=== PATIENT | male | born 1980 | race Asian ===

== ENCOUNTER 2020-03-16 20:11 | Emergency (ER) | payer OTHER, SELFPAY ==
[2020-03-16 20:15] VITALS: BP 132/76; PULSE 87; RESP 13; TEMP 36.6; O2SAT 97; BMI 269.8
--- NOTE | 2020-03-16 20:24 | ED.WOUNDLAC ---
HPI - Wound/Laceration <Kellen Sheridan PA-C - Last Filed: 03/16/20 23:40> General Chief Complaint: Wound/Laceration Stated Complaint: LACERATION OF THE CHIN Time Seen by Provider: 03/16/20 20:23 Source: patient Mode of arrival: Ambulatory Limitations: no limitations History of Present Illness HPI narrative: Is a previously healthy 39-year-old gentleman who presents to the emergency department with a laceration to his chin with the bleeding controlled while holding direct pressure. He says that he has been camping with his family and he stepped off of a boat onto a dock which was about the same height as the boat and he tripped and fell forward catching himself with his legs in his thighs and then landing on his chin on the dock. This happened just prior to presenting to the emergency department. He notes that the cut is still bleeding some if he does not hold direct pressure on it. He notes that he has a ?swollen lip?, and that he has a bruise on the right side of his right thigh and the outside of his left thigh that he sustained when he fell onto the dock and caught himself on the side rail of the dock with his legs. He denies any other symptoms. He denies any prodrome of dizziness, lightheadedness, palpitations,, also denies loss of consciousness, headache, vision changes, changes to his bite, tooth injury, oral pain, any other injury except as described above. This is an isolated complaint. Onset (ago): minute(s) (30) Location: face (chin) Place: outdoors (on a dock) Patient tetanus UTD: No Context: accidental and fall Associated symptoms: pain Treatments prior to arrival: other (direct pressure) Related Data Allergies Allergy/AdvReac Type Severity Reaction Status Date / Time No Known Drug Allergies Allergy Verified 03/16/20 20:18 Review of Systems <Kellen Sheridan PA-C - Last Filed: 03/16/20 23:40> Review of Systems Narrative: GENERAL: Denies chills, fatigue, malaise, fever, sweats. HEENT: Denies sinus pain, ear pain, sore throat, difficulty swallowing, dizziness. RESPIRATORY: Denies dyspnea, cough, wheezing, hemoptysis, sputum. CARDIOVASCULAR: Denies chest pain, palpitations, orthopnea, edema, GASTROINTESTINAL: Denies nausea, vomiting, abdominal pain, diarrhea, constipation, melena. MUSCULOSKELETAL: denies weakness, joint pain, or bony pain, denies neck pain SKIN: Positive for a laceration on the underside of front of his chin. Denies rash, skin lesions, or other NEUROLOGIC: Denies weakness, headache, numbness, change in speech, confusion, seizures, incoordination. PSYCHIATRIC: No concerning psychosocial issues. 12 point review of systems is negative except for those stated above Patient History <Kellen Sheridan PA-C - Last Filed: 03/16/20 23:40> Social History Smoking Status: Unknown if ever smoked Smoking Status: Unknown if ever smoked alcohol intake frequency: holidays/special occasions only Substance Use Type: does not use Exam <Kellen Sheridan PA-C - Last Filed: 03/16/20 23:40> Narrative Exam Narrative: GENERAL: 39 year old patient appears stated age. Well-nourished, well-developed patient, in mild distress. HEAD: Atraumatic. Normocephalic. EYES: Pupils equal round and reactive. Extraocular motions intact. No scleral icterus. No injection or drainage. ENT: Nose without bleeding, purulent drainage. Oropharynx is clear, teeth are intact. Throat without erythema, tonsillar hypertrophy or exudate. Airway patent. There is mild swelling and abrasion of the left lateral lower lip. NECK: Trachea midline. Non tender. Spinous processes of the C-spine, T-spine and L-spine are nontender. C-spine range of motion is intact without pain. CARDIOVASCULAR: Regular rate and rhythm without murmurs, gallops, or rubs. RESPIRATORY: Clear to auscultation. Breath sounds equal bilaterally. No wheezes, rales, or rhonchi. GASTROINTESTINAL: Abdomen soft, non-tender, nondistended. EXTREMITIES: There is a 2 in x 3 in hematoma on the right lateral thigh midshaft, there is a hematoma and abrasion 3 in x 3 in on the left lateral thigh. Patient is fully ambulatory without leg pain. No edema or joint tenderness. BACK: Nontender without deformity or crepitance. No flank tenderness. NEURO: AOx3. Cranial nerves are intact. SKIN: There is a 3 cm full-thickness curvilinear laceration on the inferior chin. Bleeding is controlled with consistent direct pressure. No rash or erythema of visible areas Initial Vital Signs Initial Vital Signs: Vital Signs Temperature 97.8 F 03/16/20 20:15 Pulse Rate 87 03/16/20 20:15 Respiratory Rate 13 03/16/20 20:15 Blood Pressure 132/76 03/16/20 20:15 Pulse Oximetry 97 03/16/20 20:15 <Dex Ahumada DO - Last Filed: 03/17/20 00:04> Initial Vital Signs Initial Vital Signs: Vital Signs Temperature 97.8 F 03/16/20 20:15 Pulse Rate 87 03/16/20 20:15 Respiratory Rate 13 03/16/20 20:15 Blood Pressure 132/76 03/16/20 20:15 Pulse Oximetry 97 03/16/20 20:15 Procedures <DWAIN Ashraf Last Filed: 03/16/20 23:40> Laceration Repair Laceration 1: Site: face (Chin) Size (cm): 3 Description: linear (Curvilinear) and contaminated Depth: simple, single layer Local Anesthetic: lidocaine 1% and with bicarb Amount of anesthesia used (mL): 7 Pre-repair: wound explored, irrigated extensively and deep structures intact Skin layer closed with: nylon Size (cm): 5-0 Number of sutures: 6 Technique: simple, interrupted Scores <DWAIN Ashraf Last Filed: 03/16/20 23:40> GCS [place] coma scale eye opening: Spontaneous [place] coma scale verbal response: Orientated [place] coma scale motor response: Obey commands [place] coma scale total score: 15 Course <DWAIN Ashraf Last Filed: 03/16/20 23:40> Orders Ordered: Discontinued Medications Acetaminophen (Tylenol) 975 mg PO NOW ONE Stop: 03/16/20 20:37 Last Admin: 03/16/20 21:00 Dose: 975 mg Documented by: ESTHELA Bacitracin (Bacitracin) 3 applic TOP NOW ONE Stop: 03/16/20 22:02 Last Admin: 03/16/20 22:07 Dose: 3 applic Documented by: NADINE Diphtheria/Tetanus/Acell Pertussis (Adacel) 0.5 ml IM .ONCE ONE Stop: 03/16/20 21:00 Last Admin: 03/16/20 21:14 Dose: 0.5 ml Documented by: ESTHELA Ibuprofen (Advil) 800 mg PO NOW ONE Stop: 03/16/20 20:37 Last Admin: 03/16/20 21:00 Dose: Not Given Documented by: ESTHELA Lidocaine/Sodium Bicarbonate (Buffered Lidocaine 10 Ml Syr) 10 ml INJ NOW ONE Stop: 03/16/20 20:37 Last Admin: 03/16/20 21:01 Dose: 10 ml Documented by: ESTHELA Tetanus/Diphtheria Toxoids (Td) 0.5 ml IM .ONCE ONE Stop: 03/16/20 20:37 Last Admin: 03/16/20 21:15 Dose: Not Given Documented by: ESTHELA Vital Signs Vital signs: Vital Signs - 8 hr 03/16/20 20:15 03/16/20 22:17 Temperature 97.8 F Pulse Rate 87 85 Respiratory Rate 13 15 Blood Pressure 132/76 143/88 H Pulse Oximetry 97 96 <Dex Ahumada DO - Last Filed: 03/17/20 00:04> Orders Ordered: Discontinued Medications Acetaminophen (Tylenol) 975 mg PO NOW ONE Stop: 03/16/20 20:37 Last Admin: 03/16/20 21:00 Dose: 975 mg Documented by: ESTHELA Bacitracin (Bacitracin) 3 applic TOP NOW ONE Stop: 03/16/20 22:02 Last Admin: 03/16/20 22:07 Dose: 3 applic Documented by: NADINE Diphtheria/Tetanus/Acell Pertussis (Adacel) 0.5 ml IM .ONCE ONE Stop: 03/16/20 21:00 Last Admin: 03/16/20 21:14 Dose: 0.5 ml Documented by: ESTHELA Ibuprofen (Advil) 800 mg PO NOW ONE Stop: 03/16/20 20:37 Last Admin: 03/16/20 21:00 Dose: Not Given Documented by: ESTHELA Lidocaine/Sodium Bicarbonate (Buffered Lidocaine 10 Ml Syr) 10 ml INJ NOW ONE Stop: 03/16/20 20:37 Last Admin: 03/16/20 21:01 Dose: 10 ml Documented by: ESTHELA Tetanus/Diphtheria Toxoids (Td) 0.5 ml IM .ONCE ONE Stop: 03/16/20 20:37 Last Admin: 03/16/20 21:15 Dose: Not Given Documented by: ESTHELA Vital Signs Vital signs: Vital Signs - 8 hr 03/16/20 20:15 03/16/20 22:17 Temperature 97.8 F Pulse Rate 87 85 Respiratory Rate 13 15 Blood Pressure 132/76 143/88 H Pulse Oximetry 97 96 [facility] - Wound/Laceration <Kellen Sheridan PA-C - Last Filed: 03/16/20 23:40> Differential Diagnosis Differential diagnosis: Likely laceration, abrasion, avulsion of skin and other (Close head injury, neck pain, fracture) Medical Records Attestation: I reviewed the patient's medical records. [facility] Narrative Medical decision making narrative: This is a previously healthy 39-year-old gentleman who presents to the emergency department after sustaining a laceration to the underside of his chin when he was stepping from a boat onto a dock shortly before arrival in the emergency department. He caught himself initially with his anterior thighs, and then fell hitting his chin, had no loss of consciousness, no prodrome, no neck pain, full intact range of motion of the C-spine, normal bite, no broken teeth, and no imaging or labs were obtained. Differential diagnoses considered include, laceration, nerve injury, vascular injury, fracture tooth injury, close head injury, concussion. Based on history and exam, I believe this is an isolated injury laceration to the chin. Laceration was irrigated extensively and repaired as above without incident. Patient was provided with emergency return precautions, instructions for suture care, advised to follow-up with his primary care physician and all questions were answered. Discharge Plan Departure Patient Disposition: Home Clinical Impression: Laceration of chin without complication Qualifiers: Encounter type: initial encounter Qualified Code(s): S01.81XA - Laceration without foreign body of other part of head, initial encounter Discharge Date/Time: 03/16/20 22:18 Instructions: How to Care for a Laceration After Repair, DI for Laceration Repair Activity Restrictions/Additional Instructions: Thank you for allowing us to be part of her care in the emergency department today. There is no evidence of an emergent or life threatening illness at this time, but follow up with your doctor in 1-2 days is recommended nonetheless to continue to rule out serious underlying causes of your symptoms. Please call the office for an appointment. Please return to the Emergency Department for any worsening or persistent symptoms. Please take medications as directed. Please use antibiotic ointment on your chin you can cover it with a loose bandage as well, do not scrub the area when you are washing or showering and do not take soaking baths for the next few days. You can have the sutures removed with your primary care physician or at an urgent care in 7-10 days. Please be of vigilant for signs of infection which include increased swelling, increased tenderness, redness of the area as well as systemic signs such as fever, chills, nausea, vomiting. <Dex Ahumada, DO - Last Filed: 03/17/20 00:04> [facility] Attestation: Dr Ahumada Co-Sign Statement: I was available for consultation during this patient's emergency department visit. This chart is signed by myself for administrative purposes only. I did not have direct contact with this patient during this visit. They were seen independently by the APC.
[2020-03-16] MEDS: ACETAMINOPHEN 325 MG TABLET 975 MG PO (21:00)
[2020-03-16] MEDS: LIDO 1%/SOD BICARB 8.4% (10ML) 10 ML SYRINGE INJ (21:01)
[2020-03-16] MEDS: TET,DIPH,PERTUSS(ACELL),VAC/PF 0.5 ML SYRINGE IM (21:14)
--- NOTE | 2020-03-16 21:33 | PC.NURSE ---
Denies C-spine tenderness. Denies LOC. No difficulty opening and closing jaw. Do not appreciate any loose or broken teeth
[2020-03-16] MEDS: BACITRACIN OINT 0.9 GM PCKT 3 APPLIC TOP (22:07)
[2020-03-16 22:17] VITALS: BP 143/88; PULSE 85; RESP 15; O2SAT 96
== END 2020-03-16 22:18 | disposition home or self-care (01) ==
PROVIDERS: Emergency Provider Student in an Organized Health Care Education/Training Program
DX: S01.81XA Laceration without foreign body of other part of head, initial encounter (principal); W19.XXXA Unspecified fall, initial encounter; Z23 Encounter for immunization
CPT/HCPCS: 12013; 90471; 99283; 99284; 90715